=== PATIENT | female | born 1990 | race African-American/Black ===

== ENCOUNTER 2018-10-16 23:17 | Emergency (ER) | payer SELFPAY ==
--- NOTE | 2018-10-17 08:01 | ULT ---
PELVIC ULTRASOUND WITH GRAYSCALE, DOPPLER, AND SPECTRAL ANALYSIS TRANSVAGINAL PELVIC ULTRASOUND: Clinical indication: Vaginal bleeding, pelvic pain. FINDINGS: Within the right ovary there is a large complex hypoechoic lesion, containing a mild degree of gallery intern al flow and more pronounced peripheral flow. This lesion measures approximately 4.1 cm in diameter. M ild free pelvic fluid is present. There is no significant abnormality of the left ovary or uterus. An intrauterine gestation is not visualized. IMPRESSION: 1. Probable large hemorrhagic cyst of the right ovary, although given the minute component of interna l flow, an internal solid component cannot be excluded. Recommend a six week follow up pelvic ultraso und to confirm resolution, in order to exclude an underlying mass. 2. Nonvisualization of intrauterine gestation. Ectopic cannot be excluded on the basis of t his exam. Therefore, correlation with beta HCG values is necessary. 3. Mild nonspecific free pelvic fluid. Code T POS: [id number]
== END 2018-10-17 03:03 ==
LOC: ERS 23:17
DX: N83.201 Unspecified ovarian cyst, right side (principal); D64.9 Anemia, unspecified; F17.210 Nicotine dependence, cigarettes, uncomplicated
CPT/HCPCS: 36415; 76856; 84702

== ENCOUNTER 2020-04-26 16:05 | Outpatient (CLI) | payer MEDICAID ==
--- NOTE | 2020-04-26 16:49 | ULT ---
EXAM: PELVIC ULTRASOUND INCLUDING TRANSABDOMINAL, TRANSVAGINAL, AND VASCULAR DUPLEX WITH COLOR AND SPECTRAL DOPPLER IMAGIN04/26/20 HISTORY: Pelvic pain and frequent periods. COMPARISON: 10/17/18. FINDINGS: The uterus measures 9.8 x 6.5 x 5.9 cm with a thickened 2.5 cm endometrium. Right ovary 4.0 x 3.6 x 3 .3 cm containing a 1.8 x 2.1 cm cyst. Left ovary 3.5 x 3.2 x 2.2 cm with a 1.5 x 1.8 cm cyst. No abno rmal fluid collection. IMPRESSION: Marked thickened endometrium. Bilateral ovarian follicle cysts. Vascular flow documented to both ovaries. POS: RRE
== END 2020-04-26 16:06 | disposition home or self-care (01) ==
LOC: BICULT 16:05
PROVIDERS: ATTEND Family Medicine
DX: N92.0 Excessive and frequent menstruation with regular cycle (principal); R10.2 Pelvic and perineal pain; N83.202 Unspecified ovarian cyst, left side; N83.201 Unspecified ovarian cyst, right side; R93.89 Abnormal findings on diagnostic imaging of other specified body structures
CPT/HCPCS: 76856